=== PATIENT | female | born 1975 | race Caucasian/White ===

== ENCOUNTER 2017-03-01 15:47 | Emergency (ER) | payer OTHER ==
[~2017-03-01] VITALS: Ht 152.4 cm; Wt 59.3 kg
[~2017-03-01 15:47] MED LIST: ADULT LOW DOSE81 M1 PO; AMOXICILLIN500 MG PO; ASPIRIN325 MG PO; FISH OIL 1,0001 EACH PO; LEVOTHYROXINE25 MCG PO; MULTIVITAMIN1 EAC2 PO
[2017-03-01 16:57] LABS: ADD MIUA? YES; BILIRUBIN NEGATIVE; BLOOD SMALL; COLOR STRAW ((YELLOW)); GLUCOSE (STRIP) NEGATIVE; KETONES NEGATIVE; LEUKOCYTES NEGATIVE; NITRITE NEGATIVE; PROTEIN (STRIP) NEGATIVE; SPECIFIC GRAVITY 1.003 (1.000-1.030); UROBILINOGEN 0.2 MG/DL (0.2-1.0)
[2017-03-01 16:58] LABS: BACTERIA NONE SEEN /HPF; EPITHELIAL CELLS RARE /HPF; MUCUS NONE SEEN /LPF; RED BLOOD CELLS 0-5 /HPF (0-5); WHITE BLOOD CELLS NONE SEEN /HPF (0-5)
[2017-03-01] MEDS ORDERED: BENTYL20 MG PO (17:21)
[2017-03-01] MEDS ORDERED: ZOFRAN ODT4 MG PO (17:21)
[2017-03-01] MEDS ORDERED: VALIUM2 MG PO (17:21)
[2017-03-01 17:40] LABS: HEMATOCRIT 45.8 % (36.0-46.0); MCH 31.3 PG (29.0-34.0); MCHC 34.7 G/DL (30.0-36.0); MCV 90.2 FL (83-99); MEAN PLAT.VOLUME 9.5 uM^3 (9.5-12.4); PLATELET COUNT 252 K/uL (156-360); RBC DIS.WIDTH-CV 11.7 % (11.8-14.6); RBC DIS.WIDTH-SD 38.5 % (39-53); RED BLOOD COUNT 5.08 M/uL (3.80-5.20); WHITE BLOOD COUNT 7.8 K/uL (4.1-10.2)
[2017-03-01 17:54] LABS: CHLORIDE 102 mEq/L (99-109); POTASSIUM 3.8 mEq/L (3.7-5.4); SODIUM 139 mEq/L (136-147)
[2017-03-01 17:56] LABS: GLUCOSE 101 mg/dL (70-99)
[2017-03-01 17:57] LABS: ANION GAP 11 MEQ/L (2-14)
[2017-03-01 17:58] LABS: TOTAL BILIRUBIN 0.6 mg/dL (0.0-1.0)
[2017-03-01 18:00] LABS: ALKALINE PHOSPHATASE 78 IU/L (3-129); GFR ESTIMATE (CALCULATED) > 59 mL/min/
[2017-03-01 18:01] LABS: UREA NITROGEN (BUN) 8 mg/dL (9-23)
[2017-03-01 18:02] LABS: DIRECT BILIRUBIN 0.2 mg/dL (0.0-0.3)
[2017-03-01 18:08] LABS: QUANTITATIVE HCG < 4.0 MIU/ML
[2017-03-01 18:50] VITALS: BP 130/66
== END 2017-03-01 18:53 | disposition home or self-care (01) ==
LOC: EME 15:47
PROVIDERS: Physician Assistant
DX: R11.0 Nausea (principal); H69.83 Other specified disorders of Eustachian tube, bilateral; R10.84 Generalized abdominal pain; J02.9 Acute pharyngitis, unspecified; J30.9 Allergic rhinitis, unspecified; E03.9 Hypothyroidism, unspecified
CPT/HCPCS: 74000; 80048; 80076; 81003; 84702; 85027; 99281; 99284